=== PATIENT | male | born 1955 | race African-American/Black ===

== ENCOUNTER 2017-05-02 20:19 | Emergency (ER) | payer OTHER ==
[~2017-05-02] VITALS: Ht 177.8 cm; Wt 80.0 kg
[2017-05-02 20:22] VITALS: BP 160/94; PULSE 66; RESP 16; TEMP 98.7; O2SAT 98
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
[2017-05-02] MEDS ORDERED: CYCL1TAB29 PO (20:57)
[2017-05-02] MEDS ORDERED: DICL75TA PO (20:57)
== END 2017-05-02 21:09 | disposition home or self-care (01) ==
LOC: NEPK 20:19
DX: M54.5 Low back pain (principal); I10 Essential (primary) hypertension; E07.9 Disorder of thyroid, unspecified; G47.30 Sleep apnea, unspecified; F17.200 Nicotine dependence, unspecified, uncomplicated; Z87.19 Personal history of other diseases of the digestive system; Z87.39 Personal history of other diseases of the musculoskeletal system and connective tissue; Z86.69 Personal history of other diseases of the nervous system and sense organs; V89.2XXA Person injured in unspecified motor-vehicle accident, traffic, initial encounter
CPT/HCPCS: 99284